=== PATIENT | male | born 1975 | race Caucasian/White ===

== ENCOUNTER 2016-05-16 14:09 | Emergency (ER) | payer SELFPAY ==
[2016-05-16 14:48] LABS: Hematocrit 43.9 % (42.0-52.0); Mean Cell Volume 85.1 fl (78-100); Mean Corpuscular Hemoglobin 29.1 pg (27-31); Mean Corpuscular Hgb Conc 34.2 g/dl (32-36); Mean Platelet Volume 9.2 fl (6.0-9.5); Neutrophil # 1.7 K/mm3 (1.3-6.0); Neutrophil % 41.4 % (42-75.0); Platelet Count 128 K/mm3 (150-450); Red Blood Count 5.16 M/mm3 (4.7-6.0); Red Cell Distribution Width 14.6 % (11.5-14.0); White Blood Count 4.1 K/mm3 (4.0-10.5)
[2016-05-16 14:59] LABS: ALT 47 U/L (19-67); AST 35 U/L (0-48); Albumin * 3.6 gm/dl (3.4-5.0); Alkaline Phosphatase * 59 U/L (50-170); Anion Gap 12.1 mmol/L (6.8-13.8); BUN/Creatinine Ratio 14.6 (9.0-21.6); Bilirubin, Total 0.3 mg/dL (0.0-1.1); Blood Urea Nitrogen 14 mg/dL (6-23); Ca. Corrected For Albumin 8.9 mg/dL (8.4-10.2); Calcium * 8.9 mg/dL (7.9-10.9); Carbon Dioxide 26.2 mmol/L (24-32.6); Chloride 106 mmol/L (97-106); Glucose * 88 mg/dL (70-110); Potassium 4.3 mmol/L (3.4-4.6); Salicylate Less than 2.8 mg/dL (2.8-20.0); Sodium 140 mmol/L (132-142); Total Protein 8.5 gm/dL (6.2-8.2)
[2016-05-16] MEDS ORDERED: DIPHTH,PERTUSS(ACELL),TET VAC 0.5 ML VIAL IM ONE ×2 (15:36→15:38)
[2016-05-16] MEDS ORDERED: NORMAL SALINE 1,000 ML IV ONE (15:45)
[2016-05-16 15:54] LABS: Urine Bilirubin Negative (NEGATIVE); Urine Blood Negative /ul (NEGATIVE); Urine Ketone Negative (NEGATIVE); Urine Nitrite Negative (NEGATIVE); Urine Protein Negative (NEGATIVE); Urine Specific Gravity <=1.005 SP.GR. (1.005-1.030); Urine Urobilinogen Normal (NORMAL)
[2016-05-16 16:04] LABS: Cocaine Ur Negative (NEGATIVE); Urine Barbiturate Negative (NEGATIVE); Urine Benzodiazepines Negative (NEGATIVE); Urine Opiates Negative (NEGATIVE); Urine PCP Negative (NEGATIVE); Urine THC Negative (NEGATIVE)
[2016-05-16 16:06] LABS: Urine Appearance Clear; Urine Bacteria None Seen; Urine Color Yellow; Urine RBC None Seen /hpf (0-5); Urine WBC None Seen /hpf (0-5)
[2016-05-16] MEDS ORDERED: HYDROmorphone HCL 1 MG/ML DISP.SYRIN ONE (16:11)
[2016-05-16] MEDS ORDERED: ONDANSETRON 4 MG TAB.RAPDIS ONE (16:12)
--- NOTE | 2016-05-16 16:40 | ERNOTE ---
Medical Problem HPI - Narrative Date of Service: 05/16/16 - General Chief Complaint: Drug Overdose Time Seen by Provider: 05/16/16 14:29 Source: patient, EMS - Immun/Allergies/Home Medications Immunizations: IMMUNIZATION HX Immunizations Up to Date No History of Influenza Vaccine No Hx Pneumococcal Vaccination No Allergies/Adverse Reactions: Allergies No Known Allergies Allergy (Verified 06/07/13 08:34) Home Medications: HOME MEDICATIONS NK [No Home Medication] 05/22/13 [Last Taken Unknown] - History of Present History Narrative: pt was found under the influence by EMS and brought in. PT also had a fall and sustained a right forehead laceration. ] Review of Systems - Review of Systems Constitutional: Present: no symptoms reported EYE: Present: no symptoms reported ENT: Present: no symptoms reported Respiratory: Present: no symptoms reported Cardiology: Present: no symptoms reported Gastrointestinal/Abdominal: Present: no symptoms reported - Patient's Past Medical History Patient History - Medical: Seizures Patient History - Cardiac/Respiratory: Hypertension Patient History - Cancer: No Hx of Cancer Patient History - Surgical Procedures: Other - Family History Mother Family History - Medical: No pertinent hx Father Family History - Medical: History Unknown - Social History Living Situations: parents Abuse History: No History of abuse Psych History: Hx of Anxiety Smoking Status: Light tobacco smoker Have you smoked in the past 12 months: Yes Do you dip or chew tobacco: No Alcohol Use: occasionally Drug Use: none - Immunizations Immunizations Up to Date: No Hx Pneumococcal Vaccination: No History of Influenza Vaccine: No Physical Exam - Physical Exam General Appearance: Present: wd/wn, other - pt is under the influence of what appears to smell suspiciously similar to alcohol. He denies having taken any other medications Eye Exam: Normal inspection: bilateral, PERRL: bilateral, EOMI: bilateral Ears, Nose, Throat: Present: normal ENT inspection, hearing grossly normal, other - pt has a 3 cm superficial laceration to the left forehead. It has stopped bleeding at this time. Neck: Present: normal inspection, nontender Respiratory: Present: no respiratory distress, normal breath sounds, no accessory muscle use, chest nontender, lungs clear Cardiovascular/Chest: Present: regular rate, rhythm, no murmur, normal peripheral pulses Gastrointestinal/Abdominal: Present: normal bowel sounds, nontender, nondistended, soft Back Exam: Present: normal inspection, normal range of motion Extremity Exam: Present: normal inspection, non-tender ED Progress - Vital Signs Vital Signs: Vital Signs 05/16/16 05/16/16 05/16/16 14:13 14:21 15:22 Temperature 36.1 C L Pulse Rate 70 70 74 Respiratory 14 12 Rate Blood Pressure 110/76 94/63 O2 Sat by Pulse 96 97 Oximetry 05/16/16 16:23 Temperature Pulse Rate 64 Respiratory 15 Rate Blood Pressure 85/57 O2 Sat by Pulse 97 Oximetry - Progress/Reassessment Chief Complaint: Drug Overdose Plan - Plan Plan: 3 cm superficial clean, linear laceration to the right forehead. Area cleaned and anesthetized with Lidocaine and epi 2 cc and area was then sutured with 6-0 ethylon nylon sutures. PT tolerated procedure well. ETOH level above nl level, no Benzo's in urine drug screen noted. no focal neurological deficits. Departure - Departure Clinical Impression: Laceration Alcohol intoxication Qualifiers: Complication of substance-induced condition: uncomplicated Qualified Code(s): F10.120 - Alcohol abuse with intoxication, uncomplicated Disposition: Home self-care Condition: Good Instructions: Alcohol Use Disorder Additional Instructions: follow up in 48 hour for wound check then follow up in five days for suture removal
[2016-05-16 21:57] VITALS: BP 107/75
== END 2016-05-16 16:40 | disposition home or self-care (01) ==
LOC: ER 14:09
PROC: 0HQ1XZZ Repair Face Skin, External Approach (ICD-10-PCS; principal; 2016-05-16)
DX: S01.81XA Laceration without foreign body of other part of head, initial encounter (principal); F10.120 Alcohol abuse with intoxication, uncomplicated; F17.210 Nicotine dependence, cigarettes, uncomplicated; Z23 Encounter for immunization; W19.XXXA Unspecified fall, initial encounter
CPT/HCPCS: 12013; 36415; 70450; 80053; 81001; 85025; 90471; 90715; 93005; 94760; 99282; G0479; G0480; G0481

== ENCOUNTER 2016-05-17 15:50 | Emergency (ER) | payer SELFPAY ==
[2016-05-17 16:07] VITALS: BP 131/80
== END 2016-05-17 16:14 | disposition left against medical advice (07) ==
LOC: ER 15:50
DX: Z53.21 Procedure and treatment not carried out due to patient leaving prior to being seen by health care provider (principal)

== ENCOUNTER 2016-05-17 19:21 | Emergency (ER) | payer SELFPAY ==
--- NOTE | 2016-05-17 20:12 | ERNOTE ---
Medical Problem HPI - Narrative Date of Service: 05/17/16 - General Time Seen by Provider: 05/17/16 19:54 Source: family - Immun/Allergies/Home Medications Immunizations: IMMUNIZATION HX Immunizations Up to Date Yes History of Influenza Vaccine No Hx Pneumococcal Vaccination No Allergies/Adverse Reactions: Allergies No Known Allergies Allergy (Verified 06/07/13 08:34) Home Medications: HOME MEDICATIONS ALPRAZolam [Xanax] 0.5 mg PO BID PRN 05/17/16 [Last Taken Unknown] Fluoxetine HCl [Prozac] 40 mg PO DAILY 05/17/16 [Last Taken Unknown] - History of Present History Narrative: patient is brought in by very concerned cousin and brother because he verbalized that he was going to kill himself and to "end it all" PT has had lots of stressors such as going thru a divorce and not being able to see his children. Review of Systems - Review of Systems Constitutional: Present: no symptoms reported EYE: Present: no symptoms reported ENT: Present: no symptoms reported Respiratory: Present: no symptoms reported Gastrointestinal/Abdominal: Present: no symptoms reported Genitourinary: Present: no symptoms reported - Patient's Past Medical History Patient History - Medical: Seizures Patient History - Cardiac/Respiratory: Hypertension Patient History - Cancer: No Hx of Cancer Patient History - Surgical Procedures: Other - Family History Mother Family History - Medical: No pertinent hx Father Family History - Medical: History Unknown - Social History Living Situations: parents Abuse History: No History of abuse Psych History: Hx of Anxiety Alcohol Use: occasionally Drug Use: none - Immunizations Immunizations Up to Date: Yes Hx Pneumococcal Vaccination: No History of Influenza Vaccine: No Physical Exam - Physical Exam Narrative: pt in under the influence of some substance and smells like ETOH General Appearance: Present: wd/wn, alert, other - There is a 3 cm laceration to right forehead that this examiner sutured up last night Eye Exam: Normal inspection: bilateral, PERRL: bilateral, EOMI: bilateral Ears, Nose, Throat: Present: hearing grossly normal Neck: Present: normal inspection, nontender, supple Respiratory: Present: no respiratory distress, normal breath sounds, no accessory muscle use, chest nontender, lungs clear Gastrointestinal/Abdominal: Present: normal bowel sounds, nontender, nondistended Extremity Exam: Present: normal inspection Neurological Exam: Present: alert, other - pt appears to be under the influence of some substance and he smells like ETOH and slightly slurs speech ED Progress - Vital Signs Patient's Vital Signs:: I have reviewed the patient's vital signs. Vital Signs: Vital Signs 05/17/16 16:02 Temperature 36.5 C Blood Pressure 131/80 - EKG EKG: atrial fibrillation - Transfer of Care Physician Sign Out: Nimco Silva Receiving Physician: Zion Thurman Expected Disposition: Transfer Plan - Plan Plan: This case was discussed with Judge Herbert. It is my feeling and professional opinion that this patient has plans to hurt or kill himself. He is under the influence of ETOH and was placed on a 48 hour hold based on verbal order from Typing Teacher Keon Departure - Departure Clinical Impression: Suicidal ideations
[2016-05-17] MEDS ORDERED: NORMAL SALINE 1,000 ML IV ONE (20:37)
[2016-05-17 21:03] LABS: Hemoglobin 14.4 gm/dL (13.5-18.0); Mean Cell Volume 84.2 fl (78-100); Mean Corpuscular Hemoglobin 28.9 pg (27-31); Mean Corpuscular Hgb Conc 34.3 g/dl (32-36); Mean Platelet Volume 9.1 fl (6.0-9.5); Neutrophil # 1.8 K/mm3 (1.3-6.0); Neutrophil % 42.4 % (42-75.0); Platelet Count 137 K/mm3 (150-450); Red Blood Count 4.99 M/mm3 (4.7-6.0); Red Cell Distribution Width 14.8 % (11.5-14.0); White Blood Count 4.3 K/mm3 (4.0-10.5)
[2016-05-17 21:25] LABS: ALT 45 U/L (19-67); AST 37 U/L (0-48); Albumin * 3.6 gm/dl (3.4-5.0); Alkaline Phosphatase * 59 U/L (50-170); Anion Gap 13.3 mmol/L (6.8-13.8); BUN/Creatinine Ratio 9.1 (9.0-21.6); Bilirubin, Total 0.4 mg/dL (0.0-1.1); Blood Urea Nitrogen 9 mg/dL (6-23); Ca. Corrected For Albumin 8.5 mg/dL (8.4-10.2); Calcium * 8.5 mg/dL (7.9-10.9); Carbon Dioxide 25.5 mmol/L (24-32.6); Chloride 107 mmol/L (97-106); Glucose * 141 mg/dL (70-110); Potassium 3.8 mmol/L (3.4-4.6); Salicylate Less than 2.8 mg/dL (2.8-20.0); Sodium 142 mmol/L (132-142); TSH * 0.448 uIU/mL (0.358-3.74); Total Protein 8.3 gm/dL (6.2-8.2)
[2016-05-17 22:05] LABS: Urine Bilirubin Negative (NEGATIVE); Urine Ketone Negative (NEGATIVE); Urine Nitrite Negative (NEGATIVE); Urine Protein Negative (NEGATIVE); Urine Urobilinogen Normal (NORMAL)
[2016-05-17 22:07] LABS: Urine Appearance Clear; Urine Bacteria None Seen; Urine Blood Negative /ul (NEGATIVE); Urine Color Pale Yellow; Urine RBC 0-5 /hpf (0-5); Urine WBC 0-5 /hpf (0-5)
[2016-05-17 22:14] LABS: Cocaine Ur Negative (NEGATIVE); Urine Barbiturate Negative (NEGATIVE); Urine Benzodiazepines Negative (NEGATIVE); Urine Opiates Negative (NEGATIVE); Urine PCP Negative (NEGATIVE); Urine THC Negative (NEGATIVE)
[2016-05-18] MEDS ORDERED: NORMAL SALINE 1,000 ML IV ONE (02:43)
--- NOTE | 2016-05-18 12:20 | PN ---
Progess Note - Interim Narrative: 05/18/16 12:19 Stable. No longer alcohol intoxicated. Now says, is no longer interested in harming himself.
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
[2016-05-18 16:11] VITALS: BP 136/101
== END 2016-05-18 16:12 | disposition home or self-care (01) ==
LOC: ER 19:21
DX: R45.851 Suicidal ideations (principal); F41.9 Anxiety disorder, unspecified; F32.9 Major depressive disorder, single episode, unspecified
CPT/HCPCS: 36415; 80053; 81001; 84443; 85025; 99282; G0479; G0480; G0481

== ENCOUNTER 2016-07-11 09:36 | Emergency (ER) | payer MEDICAID ==
--- OUTSIDE RECORDS SUMMARY | 2016-07-11 10:07 | XMS REPORT | Continuity of Care Document ---
:1975 Author Organization [facility] ([facility]) Address [address] [place] [address] Phone [phone] Care Team Providers Name Role Phone Maria Dolores Leland Primary Care Provider [phone] Source Comments This disclosure is being made pursuant to the Care Everywhere program, applicable federal and state laws, and may not contain all informaitonavailable regarding this patient.[facility] ([facility]) Active Allergies and Adverse Reactions Not on File Current Medications Not on file Active Problems Not on file Social History Tobacco Use Types Packs/Day Years Used Date Never Assessed Plan of Care Health Maintenance Due Date Last Done Comments Hepatitis B Vaccine (1 of 3 - Primary Series) 1975 Tdap Vaccine 06/16/1987 Lipid Disorder Screening 1994 MMR Vaccine 1994 Td Vaccine 1994 Influenza Vaccine: Seasonal (#1) 11/13/2015 Results from Last 3 Months Not on file
--- NOTE | 2016-07-11 10:41 | ERNOTE ---
Date of Service: 07/11/16 Time Seen by Provider: 07/11/16 09:54 Stated Complaint: COUGH Presenting Symptoms:: cough, sore throat, runny nose, fever Source: patient Exam Limitations: no limitations Immunizations: IMMUNIZATION HX Immunizations Up to Date Yes History of Influenza Vaccine No Hx Pneumococcal Vaccination No Allergies/Adverse Reactions: Allergies No Known Allergies Allergy (Verified 07/11/16 09:43) Home Medications: HOME MEDICATIONS Doxycycline Monohydrate 100 mg PO BID #20 tablet 07/11/16 [Last Taken Unknown] Topiramate [Topamax] 50 mg PO HS 07/11/16 [Last Taken Unknown] guaiFENesin/DEXTROMETHORPHAN [Tussin Dm Syrup] 10 ml PO QID #1 syrup 07/11/16 [ Last Taken Unknown] - History of Present Ilness Narrative: Pt. comes in with c/o cough and chest congestion for one week that has been worse over the past two days. Pt. states symptoms are accompanied by fever, chest wall pain with cough, rhinorrhea, sore throat, shortness of breath with exertion or cough, and worsening symptoms at night. Pt. denies any ear pain, nasal congestion, SOB at rest, or chest pain without exacerbation. Review of Systems - Review of Systems Constitutional: Present: no symptoms reported. Absent: recent illness, fever, chills, weakness, fatigue, malaise EYE: Present: no symptoms reported ENT: Present: nose congestion Respiratory: Present: shortness of breath - only after coughing not currently, cough Cardiology: Present: chest pain - only when coughing not currently Gastrointestinal/Abdominal: Present: no symptoms reported. Absent: nausea, vomiting, diarrhea Genitourinary: Present: no symptoms reported Musculoskeletal: Present: no symptoms reported. Absent: back pain, joint pain Skin: Present: no symptoms reported Neurological: Present: no symptoms reported. Absent: headache, dizziness/light- headedness, numbness, tingling All Other Systems: All systems neg except as marked - Patient's Past Medical History Patient History - Medical: Seizures Patient History - Cardiac/Respiratory: Hypertension Patient History - Cancer: No Hx of Cancer Patient History - Surgical Procedures: Other Patient History - Other: None - Family History Mother Family History - Medical: No pertinent hx Father Family History - Medical: History Unknown - Social History Living Situations: home Abuse History: No History of abuse Psych History: Hx of Anxiety Alcohol Use: occasionally Drug Use: none - Immunizations Immunizations Up to Date: Yes Hx Pneumococcal Vaccination: No History of Influenza Vaccine: No Physical Exam - Physical Exam General Appearance: Present: wd/wn, alert, no apparent distress Eye Exam: Normal inspection: bilateral, PERRL: bilateral, EOMI: bilateral Ears, Nose, Throat: Present: nasal congestion, pharyngeal erythema. Absent: pharyngeal swelling, tonsillar exudate, tonsillar swelling Neck: Present: normal inspection, nontender. Absent: lymphadenopathy (R), lymphadenopathy (L) Respiratory: Present: no respiratory distress, normal breath sounds, no accessory muscle use, chest nontender, lungs clear. Absent: rhonchi, wheezing Cardiovascular/Chest: Present: regular rate, rhythm, no murmur, normal peripheral pulses Gastrointestinal/Abdominal: Present: normal bowel sounds, nontender, nondistended, soft Back Exam: Present: normal inspection, normal range of motion, no CVA tenderness , no vertebral tenderness Extremity Exam: Present: normal inspection, non-tender, normal range of motion, no edema Neurological Exam: Present: alert, oriented, normal mood/affect, no motor/ sensory deficits Skin Exam: Present: normal color, warm/dry. Absent: pallor, skin rash ED Progress - Date and Time Seen: Date and Time: 07/11/16 11:35 As pt. symptoms are getting worse and have lasted for longer than a week and pt is a smoker will put him on abx. 07/11/16 16:03 - Results and Orders Patient's Lab Results:: I have reviewed the patient's lab results. - Vital Signs Patient's Vital Signs:: I have reviewed the patient's vital signs. Vital Signs: Vital Signs 07/11/16 07/11/16 09:39 09:53 Temperature 36.6 C Pulse Rate 94 97 Respiratory 12 18 Rate Blood Pressure 142/88 124/73 O2 Sat by Pulse 97 97 Oximetry - X-Ray X-Ray #1 X-Ray: chest Interpretation: Reviewed by me X-ray Comments: No consolidation. - Progress/Reassessment Chief Complaint: Cough Departure - Departure Clinical Impression: Acute bronchitis Qualifiers: Bronchitis organism: unspecified organism Qualified Code(s): J20.9 - Acute bronchitis, unspecified Disposition: Home self-care Condition: Good Instructions: Acute Bronchitis, [id number] Additional Instructions: Please follow up with primary provider in 2-3 days. Prescriptions: Doxycycline Monohydrate 100 mg PO BID #20 tablet guaiFENesin/DEXTROMETHORPHAN [Tussin Dm Syrup] 10 ml PO QID #1 syrup
[2016-07-11 11:42] VITALS: BP 106/70
== END 2016-07-11 11:48 | disposition home or self-care (01) ==
LOC: ER 09:36
DX: J20.9 Acute bronchitis, unspecified (principal); Z72.0 Tobacco use; G40.409 Other generalized epilepsy and epileptic syndromes, not intractable, without status epilepticus

== ENCOUNTER 2016-12-22 15:13 | Emergency (ER) | payer OTHER ==
[2016-12-22 15:25] VITALS: BP 137/80
[2016-12-22] MEDS ORDERED: KETOROLAC TROMETHAMINE 60 MG/2 ML VIAL IM ONE ×2 (15:43→15:48)
[2016-12-22] MEDS ORDERED: ORPHENADRINE CITRATE 30 MG/ML VIAL IM ONE (15:43)
[2016-12-22] MEDS ORDERED: ORPHENADRINE CITRATE 30 MG/ML VIAL ONE (15:48)
--- NOTE | 2016-12-22 15:50 | ERNOTE ---
Back Pain ER HPI Date of Service: 12/22/16 Presenting Symptoms: injury/pain to back Time Seen by Provider: 12/22/16 15:34 Source: patient, RN notes reviewed Exam Limitations: no limitations Immunizations: IMMUNIZATION HX Immunizations Up to Date Yes History of Influenza Vaccine No Hx Pneumococcal Vaccination No Allergies/Adverse Reactions: Allergies No Known Allergies Allergy (Verified 12/22/16 15:25) Home Medications: HOME MEDICATIONS Cyclobenzaprine HCl [Flexeril] 10 mg PO TID PRN #20 tab 12/22/16 [Last Taken Unknown] Ibuprofen [Motrin] 600 mg PO Q6H PRN #40 tab 12/22/16 [Last Taken Unknown] Narrative: 41 y/o male ambulatory to the ED for pain in the middle of his back that began without incident a week ago. He reports having pain off and on in the same location for several years, but it is more severe this time. He has not been taking anything for pain. Timing: Reports: getting worse Quality/Severity: Reports: aching Location of pain: Reports: mid back, no radiation Activities at Onset: Reports: none Recent Injury?: Reports: no Modifying Factors - (Worsens): Reports: other - worse when he first wakes up in the mornings Associated Symptoms: Denies: fever/chills, constipation/incontinence, nausea/ vomiting, problems urinating, difficulty walking, lightheadedness, numbess/ weakness in legs Review of Systems - Review of Systems Constitutional: Absent: recent illness, fever, chills, malaise EYE: Present: no symptoms reported ENT: Present: no symptoms reported Respiratory: Absent: shortness of breath, cough Cardiology: Absent: chest pain, syncope Gastrointestinal/Abdominal: Absent: nausea, vomiting, abdominal pain Genitourinary: Absent: dysuria, hematuria Musculoskeletal: Present: back pain. Absent: neck pain, joint pain Skin: Absent: rash, lesions, lumps Neurological: Absent: weakness, numbness, tingling Endocrine: Present: no symptoms reported Hematologic/Lymphatic: Present: no symptoms reported Psych: Present: no symptoms reported - Patient's Past Medical History Patient History - Medical: Anxiety, Seizures Patient History - Cardiac/Respiratory: Hypertension Patient History - Cancer: No Hx of Cancer Patient History - Surgical Procedures: Other Patient History - Other: None - Family History Mother Family History - Medical: No pertinent hx Father Family History - Medical: History Unknown - Social History Living Situations: home Abuse History: No History of abuse Psych History: Hx of Anxiety Smoking Status: Former smoker Alcohol Use: occasionally Drug Use: none - Immunizations Immunizations Up to Date: Yes Hx Pneumococcal Vaccination: No History of Influenza Vaccine: No Physical Exam - Physical Exam General Appearance: Present: wd/wn, alert, no apparent distress Head Exam: Present: normal inspection, no evidence of injury Neck: Present: normal inspection, nontender, supple, full range of motion Respiratory: Present: no respiratory distress, normal breath sounds, no accessory muscle use, lungs clear Cardiovascular/Chest: Present: regular rate, rhythm, no murmur Back Exam: Present: normal range of motion, no CVA tenderness, vertebral tenderness - mid thoracic region Extremity Exam: Present: normal inspection, normal range of motion, no edema Neurological Exam: Present: alert, oriented, normal mood/affect, no motor/ sensory deficits Skin Exam: Present: normal color, warm/dry ED Progress - Vital Signs Patient's Vital Signs:: I have reviewed the patient's vital signs. Vital Signs: Vital Signs 12/22/16 15:21 Temperature 36.5 C Pulse Rate 64 Respiratory 16 Rate Blood Pressure 137/80 O2 Sat by Pulse 98 Oximetry - Progress/Reassessment Chief Complaint: Back Pain Progress:: Improved Departure Clinical Impression: Acute thoracic back pain Qualifiers: Back pain laterality: bilateral Qualified Code(s): M54.6 - Pain in thoracic spine - Departure Disposition: Home Follow Up Needed Condition: Good Instructions: Back Pain, Adult, [id number], Form - Excuse from Work, School, or Physical Activity Additional Instructions: Ice/heat to sore area Take ibuprofen with food Muscle relaxant will likely cause drowsiness Follow up with your doctor if symptoms continue Prescriptions: Cyclobenzaprine HCl [Flexeril] 10 mg PO TID PRN #20 tab PRN Reason: MUSCLE SPASMS Ibuprofen [Motrin] 600 mg PO Q6H PRN #40 tab PRN Reason: Pain
== END 2016-12-22 15:57 | disposition home or self-care (01) ==
LOC: ER 15:13
DX: M54.6 Pain in thoracic spine (principal)

== ENCOUNTER 2017-01-02 12:02 | Emergency (ER) | payer OTHER ==
[2017-01-02 12:12] VITALS: BP 131/73
[2017-01-02] MEDS ORDERED: ORPHENADRINE CITRATE 30 MG/ML VIAL IM ONE (12:33)
[2017-01-02] MEDS ORDERED: KETOROLAC TROMETHAMINE 60 MG/2 ML VIAL IM ONE ×2 (12:33→12:41)
--- NOTE | 2017-01-02 12:34 | ERNOTE ---
Back Pain ER HPI Date of Service: 01/02/17 Presenting Symptoms: injury/pain to back Time Seen by Provider: 01/02/17 12:26 Source: patient, RN notes reviewed, past records Exam Limitations: no limitations Immunizations: IMMUNIZATION HX Immunizations Up to Date Yes History of Influenza Vaccine No Hx Pneumococcal Vaccination No Allergies/Adverse Reactions: Allergies No Known Allergies Allergy (Verified 01/02/17 12:12) Home Medications: HOME MEDICATIONS Cyclobenzaprine HCl [Flexeril] 10 mg PO TID PRN #30 tab 01/02/17 [Last Taken Unknown] Ibuprofen [Motrin] 600 mg PO Q6H PRN #40 tab 01/02/17 [Last Taken Unknown] Narrative: 41 y/o male presents to the ED with ongoing thoracic back pain. I saw the patient approximately a week and a half ago for the same complaint. He was prescribed ibuprofen and Flexeril. His pain has not improved. He has not had an injury. He reports that he has had pain in the same place off and on for quite some time, but this time the pain is worse. He does not currently have a PCP. Timing: Reports: constant Quality/Severity: Reports: moderate, aching Location of pain: Reports: upper back, no radiation Activities at Onset: Reports: none Recent Injury?: Reports: no Prior Treament: Reports: recently seen, similar symptoms before Review of Systems - Review of Systems Constitutional: Absent: recent illness, fever, chills, malaise EYE: Present: no symptoms reported ENT: Present: no symptoms reported Respiratory: Absent: shortness of breath, cough Cardiology: Absent: chest pain, palpitations Gastrointestinal/Abdominal: Absent: nausea, abdominal pain Genitourinary: Present: no symptoms reported Musculoskeletal: Present: back pain. Absent: neck pain, joint pain, joint swelling Skin: Absent: rash, lesions, lumps Neurological: Absent: weakness, numbness, tingling Endocrine: Present: no symptoms reported Hematologic/Lymphatic: Present: no symptoms reported Psych: Present: emotional problems - Patient's Past Medical History Patient History - Medical: Alcohol Abuse, Anxiety, Depression, Seizures Patient History - Cardiac/Respiratory: Hypertension Patient History - Cancer: No Hx of Cancer Patient History - Surgical Procedures: Orthopedic Patient History - Other: None - Family History Mother Family History - Medical: No pertinent hx Father Family History - Medical: History Unknown - Social History Living Situations: home Abuse History: No History of abuse Psych History: Hx of Anxiety, Current tx/ever been on anti-depressants or anti- anxiety meds Smoking Status: Current some day smoker Have you smoked in the past 12 months: Yes Alcohol Use: occasionally Drug Use: none - Immunizations Immunizations Up to Date: Yes Hx Pneumococcal Vaccination: No History of Influenza Vaccine: No Physical Exam - Physical Exam General Appearance: Present: wd/wn, alert, no apparent distress Head Exam: Present: normal inspection, no evidence of injury Neck: Present: normal inspection, nontender, supple, full range of motion Respiratory: Present: no respiratory distress, normal breath sounds, no accessory muscle use, lungs clear Cardiovascular/Chest: Present: regular rate, rhythm, no murmur Back Exam: Present: vertebral tenderness - throacic. Absent: decreased range of motion, muscle spasm Extremity Exam: Present: normal inspection, normal range of motion, no edema Neurological Exam: Present: alert, oriented, normal mood/affect, no motor/ sensory deficits Skin Exam: Present: normal color, warm/dry ED Progress - Vital Signs Patient's Vital Signs:: I have reviewed the patient's vital signs. Vital Signs: Vital Signs 01/02/17 12:08 Temperature 36.4 C L Pulse Rate 80 Respiratory 16 Rate Blood Pressure 131/73 O2 Sat by Pulse 98 Oximetry - X-Ray X-Ray #1 X-Ray: thoracic Interpretation: Reviewed by me X-ray Comments: Thoracic Complete 3 Views * 12 pairs of thoracic ribs are seen. Pedicles are grossly intact and symmetric. Interpediculate distances are grossly normal. There is asymmetric degenerative change at the left 10th costovertebral junction. Lateral view demonstrates no compression fracture. Mild endplate degenerative changes noted throughout. Disc spaces are fairly well- preserved. Incidental note of degenerative disc disease at C5-C6 level of the cervical spine. Visualized portions of the chest unremarkable. IMPRESSION: 1. No acute osseous finding. 2. Mild diffuse degenerative spondylosis without definite focal thoracic spine disc disease. 3. Left-sided 10th costovertebral junction degenerative changes. 4. Incidental C5-C6 cervical spine degenerative disc disease. Electronically signed by Sherley Bishop M.D.. - Progress/Reassessment Chief Complaint: Back Pain Progress:: Improved Plan - Plan Plan: Again discussed with patient that he needs to get established with a PCP for his ongoing back pain as he would likely benefit from PT and may need a MRI if he does not improve. He is to have his medical records faxed to the clinic for Carlie Gresham NP to review. Departure Clinical Impression: Acute thoracic back pain Qualifiers: Back pain laterality: midline Qualified Code(s): M54.6 - Pain in thoracic spine - Departure Disposition: Home Follow Up Needed Condition: Stable Instructions: Back Pain, Adult, Back Exercises, Form - Excuse from Work, School , or Physical Activity Additional Instructions: Take ibuprofen regularly - take with food Take Flexeril at least at night Have your medical records from your last doctor sent to the clinic so that you can get an appointment Prescriptions: Cyclobenzaprine HCl [Flexeril] 10 mg PO TID PRN #30 tab PRN Reason: MUSCLE SPASMS Ibuprofen [Motrin] 600 mg PO Q6H PRN #40 tab PRN Reason: Pain
[2017-01-02] MEDS ORDERED: ORPHENADRINE CITRATE 30 MG/ML VIAL ONE (12:41)
== END 2017-01-02 13:39 | disposition home or self-care (01) ==
LOC: ER 12:02
DX: M54.6 Pain in thoracic spine (principal)

== ENCOUNTER 2017-01-14 13:50 | Emergency (ER) | payer OTHER ==
[2017-01-14 14:03] VITALS: BP 139/88
--- NOTE | 2017-01-14 14:18 | ERNOTE ---
Medical Problem HPI - Narrative Date of Service: 01/14/17 - General Chief Complaint: Laceration Time Seen by Provider: 01/14/17 14:05 - Immun/Allergies/Home Medications Immunizations: IMMUNIZATION HX Immunizations Up to Date Yes History of Influenza Vaccine No Hx Pneumococcal Vaccination No Allergies/Adverse Reactions: Allergies No Known Allergies Allergy (Verified 01/14/17 14:03) Home Medications: HOME MEDICATIONS Ibuprofen [Motrin] 600 mg PO Q6H PRN #40 tab 01/02/17 [Last Taken Unknown] - History of Present History Narrative: Pt. comes in with c/o head laceration after hitting the L top of his head on a screw of the scaffolding at work just prior to arrival. Pt. denies any headache , dizziness, vision changes, numbness, tingling, SOB, or CP. Pt. denies [place] prehospital treatment. Review of Systems - Review of Systems Constitutional: Present: no symptoms reported. Absent: recent illness, fever, chills, weakness, fatigue EYE: Present: no symptoms reported ENT: Present: no symptoms reported Respiratory: Present: no symptoms reported. Absent: shortness of breath, cough , wheezing Cardiology: Present: no symptoms reported. Absent: chest pain, palpitations, edema Gastrointestinal/Abdominal: Present: no symptoms reported. Absent: nausea, vomiting, diarrhea, abdominal pain Genitourinary: Present: no symptoms reported Musculoskeletal: Present: no symptoms reported. Absent: back pain, neck pain, joint pain Skin: Present: other - laceration superficial open 0.3x 0.1cm laceration does not need closure Neurological: Present: no symptoms reported. Absent: headache, dizziness/light- headedness, weakness, numbness, tingling All Other Systems: All systems neg except as marked - Patient's Past Medical History Patient History - Medical: Alcohol Abuse, Anxiety, Depression, Seizures Patient History - Cardiac/Respiratory: Hypertension Patient History - Cancer: No Hx of Cancer Patient History - Surgical Procedures: Orthopedic Patient History - Other: None - Family History Mother Family History - Medical: No pertinent hx Father Family History - Medical: History Unknown - Social History Living Situations: home Abuse History: No History of abuse Psych History: Hx of Anxiety, Current tx/ever been on anti-depressants or anti- anxiety meds Smoking Status: Current every day smoker Have you smoked in the past 12 months: Yes Alcohol Use: occasionally Drug Use: none - Immunizations Immunizations Up to Date: Yes Hx Pneumococcal Vaccination: No History of Influenza Vaccine: No Physical Exam - Physical Exam General Appearance: Present: wd/wn, alert, no apparent distress Head Exam: Present: active bleeding, lacerations, tenderness - over laceration, other - laceration superficial open 0.3x 0.1cm laceration does not need closure. Absent: Blackburn's Sign, contusions, swelling Eye Exam: Normal inspection: bilateral, PERRL: bilateral, EOMI: bilateral Neck: Present: normal inspection, nontender. Absent: lymphadenopathy (R), lymphadenopathy (L) Respiratory: Present: no respiratory distress, normal breath sounds, no accessory muscle use, chest nontender, lungs clear Cardiovascular/Chest: Present: regular rate, rhythm, no murmur, normal peripheral pulses Back Exam: Present: normal inspection, normal range of motion, no vertebral tenderness Extremity Exam: Present: normal inspection, non-tender, normal range of motion, no edema Neurological Exam: Present: alert, oriented, normal mood/affect, no motor/ sensory deficits, tobacco wetter II-XII nml as tested, normal cerebellar test Skin Exam: Present: normal color, warm/dry, other - laceration superficial open 0.3x 0.1cm laceration does not need closure ED Progress - Date and Time Seen: Date and Time: 01/14/17 14:13 Pt. wound is superficial and pt. has no significant swelling and denies danger signs for headinjury therefore pt. does not require any imaging at this time. Educated pt. on when to return to the ER or follow up with primary provider. - Vital Signs Patient's Vital Signs:: I have reviewed the patient's vital signs. Vital Signs: Vital Signs 01/14/17 13:50 Temperature 37.0 C Pulse Rate 82 Respiratory 16 Rate Blood Pressure 139/88 O2 Sat by Pulse 98 Oximetry - Progress/Reassessment Chief Complaint: Laceration Departure Clinical Impression: Head injury, acute Qualifiers: Encounter type: initial encounter Qualified Code(s): S09.90XA - Unspecified injury of head, initial encounter - Departure Disposition: Home self-care Condition: Good Instructions: Head Injury, Adult, [id number] Additional Instructions: Please follow up with primary provider in 2-3 days if you worsen. Be careful washing hair and keep applying neosporin or bacitracin daily and keep wound covered.
== END 2017-01-14 14:15 | disposition home or self-care (01) ==
LOC: ER 13:50
DX: S09.90XA Unspecified injury of head, initial encounter (principal); W45.8XXA Other foreign body or object entering through skin, initial encounter; Y93.01 Activity, walking, marching and hiking; Y92.9 Unspecified place or not applicable; Y99.9 Unspecified external cause status; F17.200 Nicotine dependence, unspecified, uncomplicated

== ENCOUNTER 2017-01-15 12:46 | Emergency (ER) | payer OTHER ==
[2017-01-15 13:04] VITALS: BP 107/52
--- NOTE | 2017-01-15 13:18 | ERNOTE ---
Psychological HPI - General Chief Complaint: Anxiety Source: Reports: patient Exam Limitations: Reports: no limitations - Immun/Allergies/Home Medications Allergies/Adverse Reactions: Allergies No Known Allergies Allergy (Verified 01/15/17 13:03) Home Medications: HOME MEDICATIONS Ibuprofen [Motrin] 600 mg PO Q6H PRN #40 tab 01/02/17 [Last Taken Unknown] ALPRAZolam [Xanax] 0.5 mg PO BID PRN #19 tablet 01/15/17 [Last Taken Unknown] - History of Present Illness Narrative: Patient has a history of anxiety, has been off medications for about a year. Last night he had a panic attack and would like to get back on xanax. He was told that he will have an appointment in the clinic the end of February with Carlie Gresham, denies any symptoms at this point Time Seen by Provider: 01/15/17 13:18 Review of Systems - Review of Systems Constitutional: Present: recent illness - seen for head injury yesterday ENT: Absent: nose congestion, sore throat Respiratory: Absent: shortness of breath Cardiology: Absent: chest pain Gastrointestinal/Abdominal: Absent: nausea, abdominal pain Genitourinary: Present: no symptoms reported Musculoskeletal: Absent: back pain Neurological: Absent: headache, weakness, numbness - Patient's Past Medical History Patient History - Medical: Alcohol Abuse, Anxiety, Depression, Seizures Patient History - Cardiac/Respiratory: Hypertension Patient History - Cancer: No Hx of Cancer Patient History - Surgical Procedures: Orthopedic Patient History - Other: None - Family History Mother Family History - Medical: No pertinent hx Father Family History - Medical: History Unknown - Social History Living Situations: home Abuse History: No History of abuse Psych History: Hx of Anxiety, Current tx/ever been on anti-depressants or anti- anxiety meds Smoking Status: Current every day smoker Have you smoked in the past 12 months: Yes Alcohol Use: occasionally Drug Use: none - Immunizations Immunizations Up to Date: Yes Hx Pneumococcal Vaccination: No History of Influenza Vaccine: No Psychological Exam - Exam General Appearance: Present: wd/wn, alert, no apparent distress Neurological: Present: alert, normal mood/affect, calm Thoughts/Hallucinations: Present: normal thought pattern, no apparent hallucination Behavior/Eye Contact/Speech: Present: cooperative, good eye contact, normal speech Respiratory: Present: no respiratory distress, normal breath sounds, lungs clear Cardiovascular/Chest: Present: regular rate, rhythm, no murmur Skin Exam: Present: normal color, warm/dry ED Progress - Vital Signs Patient's Vital Signs:: I have reviewed the patient's vital signs. Vital Signs: Vital Signs 01/15/17 13:01 Temperature 36.7 C Pulse Rate 81 Respiratory 14 Rate Blood Pressure 107/52 O2 Sat by Pulse 99 Oximetry - Progress/Reassessment Chief Complaint: Anxiety Departure Clinical Impression: Anxiety - Departure Disposition: Home self-care Condition: Good Instructions: Panic Attacks, [id number] Additional Instructions: follow up with Carlie Gresham as scheduled Referrals: Carlie Gresham, SENIOR ACCOUNTING MANAGER [[facility]] - Prescriptions: ALPRAZolam [Xanax] 0.5 mg PO BID PRN #19 tablet PRN Reason: Anxiety
== END 2017-01-15 13:29 | disposition home or self-care (01) ==
LOC: ER 12:46
DX: F41.9 Anxiety disorder, unspecified (principal); F17.200 Nicotine dependence, unspecified, uncomplicated

== ENCOUNTER 2017-01-24 03:28 | Emergency (ER) | payer OTHER ==
[2017-01-24] MEDS ORDERED: LORazepam 2 MG/ML DISP.SYRIN IV ONE ×2 (03:41→06:07)
[2017-01-24] MEDS ORDERED: LORazepam 2 MG/ML DISP.SYRIN ONE (03:42)
[2017-01-24 03:51] LABS: Hematocrit 42.7 % (42.0-52.0); Hemoglobin 14.7 gm/dL (13.5-18.0); Mean Cell Volume 86.4 fl (78-100); Mean Corpuscular Hemoglobin 29.8 pg (27-31); Mean Corpuscular Hgb Conc 34.4 g/dl (32-36); Neutrophil # 2.7 K/mm3 (1.3-6.0); Neutrophil % 55.2 % (42-75.0); Platelet Count 142 K/mm3 (150-450); Red Blood Count 4.94 M/mm3 (4.7-6.0); Red Cell Distribution Width 14.5 % (11.5-14.0); White Blood Count 4.8 K/mm3 (4.0-10.5)
--- NOTE | 2017-01-24 04:00 | ERNOTE ---
Chest Pain/Cardiac HPI Chief Complaint: Chest Pain Time Seen by Provider: 01/24/17 03:44 Source: patient, EMS, RN notes reviewed Exam Limitations: intoxication Immunizations: IMMUNIZATION HX Immunizations Up to Date Yes History of Influenza Vaccine No Hx Pneumococcal Vaccination No Allergies/Adverse Reactions: Allergies No Known Allergies Allergy (Verified 01/24/17 03:35) Home Medications: HOME MEDICATIONS ALPRAZolam [Xanax] 0.5 mg PO BID PRN #19 tablet 01/15/17 [Last Taken Unknown] clonazePAM [Klonopin] 0.5 mg PO BID PRN #6 tablet 01/24/17 [Last Taken Unknown] Narrative: Patient woke up with chest pain 3-4 hours ago. He has anxiety, the pain made his anxiety much worse. He called for an ambulance, and then took off on foot prior to EMS arriving. They found him out walking. He was tachycardic and very anxious on their arrival. He notes that he has a lot of anxiety. He has been working for a [employer] agency, has been laid off from [employer], and is to go somewhere in [place] next. He states he is working until he goes back to school , he wants to become a therapist. Timing: constant Severity/Quality: severe, pressure Location: substernal Chest Pain Radiation: arms Activities at Onset: sleep Modifying Factors - Worsens: Present: nothing Nitro Today/Relief: 0.4 mg x 1 Aspirin Treatment Today: 81 mg x 4 Associated Symptoms: Present: shortness of breath, other - anxiety Prior Chest Pain/Cardiac Workup: Reports: no prior cardiac workup Review of Systems - Review of Systems Constitutional: Absent: recent illness, fever, chills EYE: Present: no symptoms reported ENT: Absent: ear pain, sore throat Respiratory: Present: shortness of breath. Absent: cough Cardiology: Present: chest pain, palpitations Gastrointestinal/Abdominal: Absent: nausea, vomiting, diarrhea Genitourinary: Present: no symptoms reported Musculoskeletal: Present: other - left arm pain Skin: Present: no symptoms reported Neurological: Present: anxiety Endocrine: Present: no symptoms reported Hematologic/Lymphatic: Present: no symptoms reported Psych: Present: anxiety - Patient's Past Medical History Patient History - Medical: Alcohol Abuse, Anxiety, Depression, Seizures Patient History - Cardiac/Respiratory: Hypertension Patient History - Cancer: No Hx of Cancer Patient History - Surgical Procedures: Orthopedic Patient History - Other: None - Family History Mother Family History - Medical: No pertinent hx Father Family History - Medical: History Unknown - Social History Living Situations: home Abuse History: No History of abuse Psych History: Hx of Anxiety, Current tx/ever been on anti-depressants or anti- anxiety meds Smoking Status: Current every day smoker Patient requests Smoking Cessation Consult: No Initiate information on Smoking Cessation: No Alcohol Use: heavy Drug Use: none - Immunizations Immunizations Up to Date: Yes Hx Pneumococcal Vaccination: No History of Influenza Vaccine: No Physical Exam - Physical Exam General Appearance: Present: wd/wn, alert, moderate distress Head Exam: Present: normal inspection, no evidence of injury Eye Exam: Normal inspection: bilateral, PERRL: bilateral, EOMI: bilateral Ears, Nose, Throat: Present: normal ENT inspection, normal pharynx Neck: Present: normal inspection, nontender Respiratory: Present: no respiratory distress, normal breath sounds, no accessory muscle use, chest nontender, lungs clear Cardiovascular/Chest: Present: regular rate, rhythm, no murmur Gastrointestinal/Abdominal: Present: normal bowel sounds, nontender, nondistended, soft Back Exam: Present: normal inspection, normal range of motion Extremity Exam: Present: normal inspection, non-tender, normal range of motion, no edema Neurological Exam: Present: alert, oriented, normal mood/affect, no motor/ sensory deficits Skin Exam: Present: normal color, warm/dry ED Progress - Results and Orders Patient's Lab Results:: I have reviewed the patient's lab results. Results and Orders: Laboratory Tests 01/24/17 01/24/17 01/24/17 03:48 03:48 03:48 WBC 4.8 RBC 4.94 Hgb 14.7 Hct 42.7 MCV 86.4 MCH 29.8 MCHC 34.4 RDW 14.5 H Plt Count 142 L MPV 9.0 Immature Gran % (Auto) 0.60 H Immature Gran # (Auto) 0.03 Neutrophils % 55.2 Lymphocytes % 27.1 Monocytes % 13.2 H Eosinophils % 2.5 Basophils % 1.4 H Nucleated RBC % 0.0 Neutrophils # 2.7 Lymphocytes # 1.3 L Monocytes # 0.6 Eosinophils # 0.1 Absolute Basophils 0.1 PT 10.9 INR (Anticoag Therapy) 1.09 PTT (Angie) 28.0 Sodium 137 Plasma Sodium 138 Potassium 3.2 L Chloride 100 Carbon Dioxide 21.4 L Anion Gap 18.8 H BUN 16 D Creatinine 1.04 Est GFR (Non-Af Amer) 84 BUN/Creatinine Ratio 15.4 Random Glucose 155 H Calcium 8.0 Calcium Adj for Albumin 8.3 L Total Bilirubin 0.4 AST 66 H ALT 96 H Alkaline Phosphatase 83 Troponin I Less than 0.017 Total Protein 7.7 Albumin 3.2 L Urine Color Urine Appearance Urine pH Ur Specific [place] Urine Protein Urine Glucose (UA) Urine Ketones Urine Blood Urine Nitrate Urine Bilirubin Urine Urobilinogen Ur Leukocyte Esterase Urine RBC Urine WBC Ur Epithelial Cells Urine Bacteria Hyaline Casts Urine Mucus Urine Culture Comments Urine Opiates Screen Barbiturate Screen Ur Phencyclidine Scrn Urine Amphetamine U Benzodiazepines Scrn Urine Cocaine Screen Urine Marijuana (THC) Ethyl Alcohol 42.0 H 01/24/17 01/24/17 01/24/17 04:54 04:54 06:08 WBC RBC Hgb Hct MCV MCH MCHC RDW Plt Count MPV Immature Gran % (Auto) Immature Gran # (Auto) Neutrophils % Lymphocytes % Monocytes % Eosinophils % Basophils % Nucleated RBC % Neutrophils # Lymphocytes # Monocytes # Eosinophils # Absolute Basophils PT INR (Anticoag Therapy) PTT ([place]) Sodium Plasma Sodium Potassium Chloride Carbon Dioxide Anion Gap BUN Creatinine Est GFR (Non-Af Amer) BUN/Creatinine Ratio Random Glucose Calcium Calcium Adj for Albumin Total Bilirubin AST ALT Alkaline Phosphatase Troponin I Less than 0.017 Total Protein Albumin Urine Color Yellow Urine Appearance Clear Urine pH 6.0 Ur Specific [place] 1.020 Urine Protein Negative Urine Glucose (UA) Negative Urine Ketones Negative Urine Blood Negative Urine Nitrate Negative Urine Bilirubin Negative Urine Urobilinogen Normal Ur Leukocyte Esterase Negative Urine RBC Trace Urine WBC None seen Ur Epithelial Cells 0-5 Urine Bacteria 2+ H Hyaline Casts 0-5 H Urine Mucus Trace Urine Culture Comments No culture indicated Urine Opiates Screen Negative Barbiturate Screen Negative Ur Phencyclidine Scrn Negative Urine Amphetamine Positive H U Benzodiazepines Scrn Negative Urine Cocaine Screen Negative Urine Marijuana (THC) Negative Ethyl Alcohol - Vital Signs Patient's Vital Signs:: I have reviewed the patient's vital signs. Vital Signs: Vital Signs 01/24/17 01/24/17 03:29 03:47 Temperature 37.6 C H Pulse Rate 112 H 104 H Respiratory 18 Rate Blood Pressure 125/86 O2 Sat by Pulse 96 Oximetry - EKG EKG: supraventricular tachycardia, nonspecific ST T wave changes EKG read: Interp. by me - X-Ray X-Ray #1 X-Ray: chest Interpretation: Interp. by me X-ray Comments: No cardiomegaly, no infiltrates, no bony abnormality - Progress/Reassessment Chief Complaint: Chest Pain Progress:: Improved Progress Note-Subjective: 01/24/17 06:40 Patient with intense anxiety, took an Adderall a couple of days ago. He was given Ativan 1 mg IV X 2. Has been resting comfortably now that his anxiety has been addressed. I discussed his results with him, advised him not to take any more pills offered to him, patient verbalized understanding. Departure Clinical Impression: Chest pain in adult, Anxiety - Departure Disposition: Home self-care Condition: Good Instructions: Panic Attacks, [id number], Alcohol Intoxication, [id number], Nonspecific Chest Pain, [id number] Referrals: Carlie Gresham FNP [[facility]] - (2-3 days) Prescriptions: clonazePAM [Klonopin] 0.5 mg PO BID PRN #6 tablet PRN Reason: Anxiety
[2017-01-24 04:03] LABS: Prothrombin Time (Patient) 10.9 Seconds (9.0-11.0)
[2017-01-24 04:05] LABS: INR 1.09 INR (0.90-1.10)
[2017-01-24 04:11] LABS: ALT 96 U/L (19-67); AST 66 U/L (0-48); Albumin * 3.2 gm/dl (3.4-5.0); Alkaline Phosphatase * 83 U/L (50-170); Anion Gap 18.8 mmol/L (6.8-13.8); BUN/Creatinine Ratio 15.4 (9.0-21.6); Bilirubin, Total 0.4 mg/dL (0.0-1.1); Blood Urea Nitrogen 16 mg/dL (6-23); Ca. Corrected For Albumin 8.3 mg/dL (8.4-10.2); Carbon Dioxide 21.4 mmol/L (24-32.6); Chloride 100 mmol/L (97-106); Glucose * 155 mg/dL (70-110); Potassium 3.2 mmol/L (3.4-4.6); Sodium 137 mmol/L (132-142); Total Protein 7.7 gm/dL (6.2-8.2); Troponin I Less than 0.017 ng/ml (0.00-0.10)
[2017-01-24 05:24] LABS: Urine Bilirubin Negative (NEGATIVE); Urine Blood Negative /ul (NEGATIVE); Urine Ketone Negative (NEGATIVE); Urine Nitrite Negative (NEGATIVE); Urine Protein Negative (NEGATIVE); Urine Urobilinogen Normal (NORMAL)
[2017-01-24 05:37] LABS: Cocaine Ur Negative (NEGATIVE); Urine Barbiturate Negative (NEGATIVE); Urine Benzodiazepines Negative (NEGATIVE); Urine Opiates Negative (NEGATIVE); Urine PCP Negative (NEGATIVE); Urine THC Negative (NEGATIVE)
[2017-01-24 05:40] LABS: Urine Appearance Clear; Urine Bacteria 2+; Urine Color Yellow; Urine Hyaline Cast 0-5 /LPF; Urine Mucus TRACE; Urine RBC TRACE /hpf (0-5); Urine WBC None Seen /hpf (0-5)
[2017-01-24 07:07] VITALS: BP 123/84
== END 2017-01-24 07:04 | disposition home or self-care (01) ==
LOC: ER 03:28
DX: R07.9 Chest pain, unspecified (principal); F41.1 Generalized anxiety disorder; F17.200 Nicotine dependence, unspecified, uncomplicated
CPT/HCPCS: 36415; 71020; 80053; 80307; 81001; 84484; 85025; 85610; 85730; 93005; 96374; 99285; G0481

== ENCOUNTER 2017-12-26 21:15 | Inpatient (IN) ==
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
[2017-12-26 21:48] LABS: Hematocrit 40.8 % (42.0-52.0); Hemoglobin 14.3 gm/dL (13.5-18.0); Mean Cell Volume 82.6 fl (78-100); Mean Corpuscular Hemoglobin 28.9 pg (27-31); Mean Platelet Volume 8.4 fl (8-11.3); Neutrophil # 3.9 K/mm3 (1.3-6.0); Neutrophil % 56.2 % (42-75.0); Platelet Count 156 K/mm3 (150-450); Red Blood Count 4.94 M/mm3 (4.7-6.0); Red Cell Distribution Width 13.8 % (11.5-14.0)
[2017-12-26 22:09] LABS: ALT 33 U/L (19-67); AST 35 U/L (0-48); Albumin * 3.6 gm/dl (3.4-5.0); Alkaline Phosphatase * 90 U/L (50-170); Anion Gap 14.7 mmol/L (6.8-13.8); BUN/Creatinine Ratio 7.8 (9.0-21.6); Bilirubin, Total 0.5 mg/dL (0.0-1.1); Blood Urea Nitrogen 9 mg/dL (6-23); Ca. Corrected For Albumin 8.3 mg/dL (8.4-10.2); Calcium * 8.3 mg/dL (7.9-10.9); Carbon Dioxide 25.9 mmol/L (24-32.6); Chloride 101 mmol/L (97-106); Glucose * 88 mg/dL (70-110); Potassium 3.6 mmol/L (3.4-4.6); Sodium 138 mmol/L (132-142); Total Protein 8.2 gm/dL (6.2-8.2)
[2017-12-26 22:10] LABS: Troponin I Less than 0.017 ng/mL (0.00-0.10)
[2017-12-26] MEDS ORDERED: ONDANSETRON HCL/PF 2 MG/ML VIAL IV ONE (22:22)
[2017-12-26] MEDS ORDERED: ONDANSETRON HCL/PF 2 MG/ML VIAL ONE (22:22)
[2017-12-26 22:57] LABS: Urine Bilirubin Negative (NEGATIVE); Urine Blood Negative /ul (NEGATIVE); Urine Ketone Negative (NEGATIVE); Urine Nitrite Negative (NEGATIVE); Urine Protein Negative (NEGATIVE); Urine Specific Gravity <=1.005 SP.GR. (1.005-1.030); Urine Urobilinogen Normal (NORMAL)
[2017-12-26 23:00] LABS: Urine Appearance Clear (CLEAR); Urine Color Yellow
[2017-12-26 23:01] LABS: Cocaine Ur Negative (NEGATIVE); Urine Barbiturate Negative (NEGATIVE); Urine Benzodiazepines Negative (NEGATIVE); Urine Opiates Negative (NEGATIVE); Urine PCP Negative (NEGATIVE); Urine THC Negative (NEGATIVE)
[2017-12-26 23:03] LABS: Urine Bacteria None Seen; Urine RBC None Seen /hpf (0-5); Urine WBC TRACE /hpf (0-5)
[2017-12-26 23:09] LABS: Salicylate Less than 2.8 mg/dL (2.8-20.0)
[2017-12-27] MEDS ORDERED: SODIUM BICARBONATE 1 MEQ/ML SYRG IV ONE (05:03)
[2017-12-27] MEDS ORDERED: POTASSIUM CHLORIDE 20 MEQ, SODIUM BICARBONATE 150 MEQ in DEXTROSE 5 % IN WATER 1,000 ML IV PRN ×6 (05:04→05:58)
[2017-12-27 05:34] LABS: Venous Blood Gas HCO3 24.7 mmol/L (22.0-29.0); Venous Blood Gas pH 7.37 (7.32-7.43)
[2017-12-27] MEDS ORDERED: POTASSIUM CHLORIDE 20 MEQ, SODIUM BICARBONATE 150 MEQ in DEXTROSE 5 % IN WATER 1,000 ML IV ONE ×6 (06:15→16:00)
[2017-12-27 06:23] LABS: Calcium * 8.3 mg/dL (7.9-10.9); Magnesium 2.3 mg/dL (1.2-2.8); Potassium 3.2 mmol/L (3.4-4.6)
[2017-12-27] MEDS ORDERED: POTASSIUM CHLORIDE 20 MEQ TABLET.SA PO ONE ×2 (07:46→12:30)
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
[2017-12-27 08:16] LABS: Magnesium 1.9 mg/dL (1.2-2.8)
[2017-12-27 08:46] LABS: Albumin * 2.7 gm/dl (3.4-5.0)
[2017-12-27 08:53] LABS: Calcium * 7.7 mg/dL (7.9-10.9)
[2017-12-27] MEDS ORDERED: ALPRAZolam 0.5 MG TABLET PO PRN (09:56)
[2017-12-27] MEDS ORDERED: LORazepam 2 MG/ML DISP.SYRIN IV PRN ×2 (13:50)
[2017-12-27] MEDS ORDERED: MULTIVIT INFUSN,ADULT 4,VIT K 10 ML, THIAMINE HCL 100 MG in DEXTROSE 5 % IN WATER 1,000 ML IV ONE ×3 (13:50)
[2017-12-27] MEDS: THIAMINE HCL 100 MG TABLET PO SCH (14:12)
[2017-12-27] MEDS: FOLIC ACID 1 MG TABLET PO SCH (14:12)
[2017-12-27] MEDS: LORazepam 2 MG/ML DISP.SYRIN IV SCH ×2 (14:13→20:12)
[2017-12-27] MEDS: LORazepam 2 MG/ML DISP.SYRIN IV PRN (18:27)
[2017-12-27 20:00] LABS: Venous Blood Gas HCO3 31.3 mmol/L (22.0-29.0); Venous Blood Gas pH 7.52 (7.32-7.43)
[2017-12-28] MEDS: LORazepam 2 MG/ML DISP.SYRIN IV SCH ×4 (01:45→20:05)
[2017-12-28 06:06] LABS: Anion Gap 7.5 mmol/L (6.8-13.8); BUN/Creatinine Ratio 9.8 (9.0-21.6); Calcium * 8.2 mg/dL (7.9-10.9); Carbon Dioxide 31.2 mmol/L (24-32.6); Estimated Creat Clear 112.5; Magnesium 1.7 mg/dL (1.2-2.8); Potassium 3.7 mmol/L (3.4-4.6)
[2017-12-28 06:22] LABS: Venous Blood Gas HCO3 28.3 mmol/L (22.0-29.0); Venous Blood Gas pH 7.47 (7.32-7.43)
[2017-12-28] MEDS: THIAMINE HCL 100 MG TABLET PO SCH (08:08)
[2017-12-28] MEDS: FOLIC ACID 1 MG TABLET PO SCH (08:08)
--- NOTE | 2017-12-28 08:18 | PN ---
Progess Note - Interim Date: 12/28/17 Time: 08:15 Narrative: 12/28/17 08:15 Feels better than yesterday. Had to be on CIWA protocol; for alcohol withdrawal. QRS had gown down to 96 and Na HCOs drip stopped. Repat EKG sows QRS in the 102 but VG showed pH of 7.52. EKG shows 106. heondynamically stable. Will repeat EKG at 10 am if still over 100 will contact poison control . Will start him on Mag and naHCOS orally. If Poison control does recommend james valdez , will transfer to medsur floor and start calling [facility] and alcohol detox centers. If still here by tomorrow , will get psych consult.
[2017-12-28] MEDS: SODIUM BICARBONATE 650 MG TABLET PO SCH ×4 (08:25→20:05)
[2017-12-28] MEDS: MAGNESIUM OXIDE 400 MG TABLET PO SCH ×3 (08:25→16:40)
[2017-12-28] MEDS: LORazepam 2 MG/ML DISP.SYRIN IV PRN (16:33)
--- NOTE | 2017-12-28 20:01 | PN ---
Subjective - Date and Time Seen Date: 12/28/17 Time: 19:57 Subjective Narrative: 12/28/17 08:15 Feels better than yesterday. Had to be on CIWA protocol; for alcohol withdrawal. QRS had gown down to 96 and Na HCOs drip stopped. Repat EKG sows QRS in the 102 but VG showed pH of 7.52. EKG shows 106. heondynamically stable. Will repeat EKG at 10 am if still over 100 will contact poison control . Will start him on Mag and naHCOS orally. If Poison control does recommend drip agaim , will transfer to medr floor and start calling [facility]- psych and alcohol detox centers. If still here by tomorrow , will get psych consult. Objective - Review of Systems Generalized/Overall Review: Denies: Chills, Fever Respiratory: Denies: Cough, Shortness of Breath, Wheezing Cardiac: Denies: Chest Pain, Edema Abdominal: Denies: Nausea, Vomiting Genitourinary Symptoms: Denies: Urgency, Frequency Neurological: Reports: Anxiety, Depressed - Vitals Vitals: Last Vital Signs Temp 36.8 C 12/28/17 17:34 Pulse 69 12/28/17 17:34 Resp 18 12/28/17 17:34 BP 122/70 12/28/17 17:34 Pulse Ox 96 12/28/17 17:34 - Abnormal Lab Findings Abnormal Lab Findings: Abnormal Lab Results 12/27/17 12/28/17 12/28/17 Range/Units 19:50 05:55 06:20 pO2 125.0 H 49.9 H (23.3-35.1) mmHg HCO3 31.3 H (22.0-29.0) mmol/L Total CO2 32.4 H 29.6 H (22.0-26.0) mmol/L Base Excess 8.0 H 4.4 H (-2.0-3.0) mmol/L ABG pH 7.52 H 7.47 H (7.32-7.43) VBG O2 Saturation 98.8 H 87.6 L (94.0-98.0) % Albumin 2.9 L (3.4-5.0) gm/dl - Exam Constitutional: Present: Alert, Oriented x3, Cooperative ENT Exam: Present: hearing grossly normal Neck: Present: supple Respiratory: Present: normal breath sounds, No rales, No wheezing Cardiovascular/Chest: Present: regular rate, rhythm, no JVD, no murmur. Absent : tachycardia Abdomen: Present: Normal bowel sounds, soft, nontender, nondistended Extremity: Present: no pedal edema, no calf tenderness Neurologic: Present: fuel handler II-XII nml as tested, no motor/sensory deficits, oriented x 3 Assessment/Plan - Problems/Diagnosis (1) Suicidal ideations Problem: Acute Narrative: continue with one to one watch. will get psycjh consult in am if he is still here. (2) Intentional drug overdose Problem: Acute Qualifiers: Encounter type: initial encounter Qualified Code(s): T50.902A - Poisoning by unspecified drugs, medicaments and biological substances, intentional self- harm, initial encounter Narrative: discussed with poison control - keep QRS less than 110 . if more than 110 , they recommend restarting Na HCO3 drip. (3) Alcohol intoxication Problem: Acute Qualifiers: Complication of substance-induced condition: uncomplicated Qualified Code(s ): F10.920 - Alcohol use, unspecified with intoxication, uncomplicated Narrative: on CIWA protocol. (4) Anxiety and depression Problem: Acute (5) Chronic alcohol abuse Problem: Chronic
[2017-12-29] MEDS: LORazepam 2 MG/ML DISP.SYRIN IV SCH ×3 (02:01→14:38)
[2017-12-29 06:09] LABS: Anion Gap 11.4 mmol/L (6.8-13.8); BUN/Creatinine Ratio 12.3 (9.0-21.6); Calcium * 8.7 mg/dL (7.9-10.9); Carbon Dioxide 27.6 mmol/L (24-32.6); Estimated Creat Clear 127.8; Magnesium 2.2 mg/dL (1.2-2.8)
[2017-12-29] MEDS: THIAMINE HCL 100 MG TABLET PO SCH (08:46)
[2017-12-29] MEDS: FOLIC ACID 1 MG TABLET PO SCH (08:46)
[2017-12-29] MEDS: MAGNESIUM OXIDE 400 MG TABLET PO SCH ×3 (08:46→17:29)
[2017-12-29] MEDS: SODIUM BICARBONATE 650 MG TABLET PO SCH ×3 (08:47→17:29)
--- NOTE | 2017-12-29 09:58 | PN ---
Progess Note - Interim Date: 12/29/17 Time: 09:54 Narrative: 12/29/17 09:54 Patient is NAD. Hemodynamically stable. Had to have 3 doses IV ativan last night . Will get Psych consult today.
--- NOTE | 2017-12-29 15:26 | CONS ---
- Reason for consultation (1) Intentional drug overdose Date of Service: 12/29/17 HPI - General Date of Service: 12/29/17 Source: patient, RN/MD, RN notes reviewed, old records Exam Limitations: no limitations - History of Present Illness Timing/Duration: momentarily Allergies/Adverse Reactions: Allergies No Known Allergies Allergy (Verified 12/26/17 21:28) Home Medications: Home Medications Medication Instructions Recorded Last Taken ALPRAZolam [Xanax] 0.5 mg PO BID PRN 12/27/17 Unknown Sertraline HCl [Zoloft] 50 mg PO DAILY 12/27/17 Unknown Procedures Repair Face Skin, External Approach (05/16/16) Medications - Medications Current Medications: Current Medications Folic Acid (Folic Acid) 1 mg PO DAILY [facility] Stop: 01/26/18 14:01 Last Admin: 12/29/17 08:46 Dose: 1 mg Lorazepam (Ativan) 1 mg IV Q2H PRN PRN Reason: Alcohol Withdrawal Stop: 01/26/18 13:51 Last Admin: 12/28/17 16:33 Dose: 1 mg Lorazepam (Ativan) 1 mg IV Q6H [facility] Stop: 01/26/18 14:01 Last Admin: 12/29/17 14:38 Dose: 1 mg Magnesium Oxide (Mag-Ox 400) 400 mg PO TID [facility] Stop: 01/27/18 09:01 Last Admin: 12/29/17 13:37 Dose: 400 mg Sodium Bicarbonate (Sodium Bicarbonate) 650 mg PO QID [facility] Stop: 01/27/18 09:01 Last Admin: 12/29/17 13:37 Dose: 650 mg Thiamine HCl (Vitamin B-1) 100 mg PO DAILY [facility] Stop: 01/26/18 14:01 Last Admin: 12/29/17 08:46 Dose: 100 mg Review of Systems - Review of Systems Generalized/Overall Review: Present: No Symptoms Reported Physical Examination - Exam Narrative: Visit lasts approx. 20 minutes. Patient states that he has had issues with alcohol and has been accepted into alcohol dependence treatment center, was supposed to go today. States that the evening of his suicide attempt, had been drinking heavily and "overreacted". Admits to so personal stressors that contributed to his thoughts of suicide. States that mood is improved today and feels good. Is looking forward to rehab , not sure what type of facility it is but thinks he will be able to return to work in a few weeks while still attending treatment. Denies any current withdrawal symptoms. Denies any further suicidal thoughts. Is able to be discharged home and to keep plan for alcohol rehab. Card given, patient can follow up in outpatient if needed. Patient voices understanding. Vital Signs: Vital Signs - Last Taken Temp 36.6 C 12/29/17 09:00 Pulse 73 12/29/17 09:00 Resp 16 12/29/17 09:00 BP 134/82 12/29/17 09:00 Pulse Ox 98 12/29/17 09:00 O2 Oxygen Delivery Method Room Air Constitutional: Present: Alert, Oriented x3, Cooperative, No distress Appearance: Present: appropriate appearance, appropriate insight Eye contact: Present: cooperative, good eye contact Thoughts: Present: normal thought pattern, no apparent hallucination, normal mood /affect - Assessments/Findings (1) Intentional drug overdose Problem: Acute Qualifiers: Encounter type: initial encounter Qualified Code(s): T50.902A - Poisoning by unspecified drugs, medicaments and biological substances, intentional self- harm, initial encounter (2) Alcohol dependence Problem: Acute
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
[2017-12-29 18:25] VITALS: BP 132/90
== END 2017-12-29 18:10 | disposition home or self-care (01) | DRG 918 ==
LOC: SCU 21:15 → ER 21:15 → OBSVTOIN 23:59 → SCU 12-27 01:20
PROVIDERS: ADMIT Internal Medicine; ATTEND Internal Medicine
CPT/HCPCS: 36415; 36416; 70450; 71020; 71046; 80048; 80053; 80307; 80320; 80329; 81001; 82040; 82310; 82803; 83735; 84132; 84484; 85025; 93005; 94760; 96374; 99285; G0479; G0480; G0481; J2405